=== PATIENT | female | born 1945 | race Caucasian/White ===

== ENCOUNTER → 2019-12-17 10:50 | Outpatient (BNVA) | payer MEDICARE, SELFPAY | PROVIDERS: PCP Internal Medicine; Referring Provider Internal Medicine; Visit Provider Hospitalist | DX: J45.20 Mild intermittent asthma, uncomplicated (principal); G47.33 Obstructive sleep apnea (adult) (pediatric); R91.8 Other nonspecific abnormal finding of lung field; R59.1 Generalized enlarged lymph nodes; Z91.19 Patient's noncompliance with other medical treatment and regimen | CPT/HCPCS: 99212 ==

== ENCOUNTER 2020-05-08 10:17 | Outpatient (REF) | payer MEDICARE, SELFPAY ==
--- NOTE | ~2020-05-08 | CT_ITS ---
EXAMINATION: CT CHEST WITHOUT CONTRAST CLINICAL INFORMATION: Follow-up pulmonary nodules COMPARISON: None TECHNIQUE: Multidetector volumetric CT imaging of the chest was done. Axial MIP volume rendering provided. Sagittal and coronal reformatted images were obtained. This CT examination was performed using dose optimization techniques as appropriate, variously including the following: *Automated exposure control *Adjustment of mA and/or kV according to patient size (this includes techniques or standardized protocols for targeted exams where dose is matched to indication/reason for exam; i.e. extremities or head) *Use of iterative reconstruction technique DLP: 22 mGy-cm FINDINGS: SYSTEMS SOFTWARE ENGINEER: Enlarged cardiac silhouette LUNGS: There is a 2 mm peripheral or subpleural right upper lobe nodule axial image 1:30 series 5. There is a 2 mm peripheral left upper lobe nodule axial image 138 series 5. There is a 4 mm groundglass attenuation right upper lobe nodule axial image 248 series 5. There is a 2 mm calcified left upper lobe nodule axial image 250 series 5. MEDIASTINUM: The heart is enlarged. There is coronary artery and aortic valve calcification. There is a very small pericardial effusion. The thoracic aorta is normal in caliber. There is no enlarged hilar or mediastinal lymph nodes. PLEURA: There is no pleural effusion. No pleural mass or thickening. AXILLA: No lymphadenopathy. UPPER ABDOMEN: There is a small amount of ascites. OSSEOUS STRUCTURES: There are degenerative changes of the spine. CT/CT chest wo con IMPRESSION: Small pulmonary nodules, largest a 4 mm groundglass attenuation nodule in the right upper lobe. Comparison with old outside exams recommended. Enlarged heart and small pericardial effusion. Coronary artery and aortic valve calcification. Small amount of ascites.
== END 2020-05-08 10:18 | disposition home or self-care (01) ==
LOC: HO.CT 10:17
PROVIDERS: Visit Provider Hospitalist
DX: R91.8 Other nonspecific abnormal finding of lung field (principal)
CPT/HCPCS: 71250

== ENCOUNTER → 2020-05-13 10:26 | Outpatient (BNVA) | payer MEDICARE, SELFPAY | PROVIDERS: PCP Internal Medicine; Visit Provider Hospitalist | DX: J45.20 Mild intermittent asthma, uncomplicated (principal); R91.8 Other nonspecific abnormal finding of lung field; I31.3 Pericardial effusion (noninflammatory); I27.20 Pulmonary hypertension, unspecified; Z79.899 Other long term (current) drug therapy | CPT/HCPCS: Q3014 ==

== ENCOUNTER → 2020-06-19 10:56 | Outpatient (BNVA) | payer MEDICARE, SELFPAY | PROVIDERS: PCP Internal Medicine; Visit Provider Hospitalist | DX: I27.20 Pulmonary hypertension, unspecified (principal); R91.8 Other nonspecific abnormal finding of lung field; G47.33 Obstructive sleep apnea (adult) (pediatric); R59.1 Generalized enlarged lymph nodes; J45.20 Mild intermittent asthma, uncomplicated; Z99.89 Dependence on other enabling machines and devices | CPT/HCPCS: 99212 ==